=== PATIENT | male | born 1990 | race Caucasian/White ===

== ENCOUNTER 2022-03-07 07:43 | Outpatient (CLI) | payer OTHER, SELFPAY ==
--- NOTE | 2022-03-07 07:51 | MR_ITS ---
WS: [id number] MRI LUMBAR SPINE NONCONTRAST TECHNIQUE: Sagittal T1, T2 and STIR imaging. Axial T1 and T2 imaging. CLINICAL INFORMATION: INJURY OF LOW BACK COMPARISON: None. FINDINGS: Some images degraded by patient motion. Mild lumbar curve. No acute compression. Disc bulgi ng worse at L3-L4 L4-L5. L1-L2: Mild facet arthropathy. Spinal canal and foramen are patent. L2-L3: Minimal annular bulging. Mild LEFT and no RIGHT foraminal narrowing. Moderate facet arthropath y. L3-L4: Shallow central disc protrusion with impingement on the ventral thecal sac. Moderate central c anal stenosis with crowding of the cauda equina nerve rootlets. Prominent dorsal epidural fat. Modera te facet arthropathy with ligamentum flavum hypertrophy. Mild RIGHT greater than LEFT foraminal narro wing. L4-L5: Mild annular bulging eccentric to the RIGHT. Mild central canal stenosis with slight impingeme nt traversing L5 nerve roots. Mild to moderate RIGHT and no LEFT foraminal narrowing. Moderate facet arthropathy. L5-S1: Mild annular bulging. Moderate facet arthropathy. Mild RIGHT and no significant LEFT foraminal narrowing. Visualized pelvic bony structures: Normal. Paravertebral soft tissues: Normal. MR/MR lumbar spine wo con* [id number] IMPRESSION: Some images degraded by patient motion. 1. Mild lumbar curve. No acute compression. 2. Moderate central canal stenosis L3-L4 with a shallow central disc protrusio n. Prominent dorsal epidural fat and facet arthropathy contributes to central c anal stenosis. 3. Mild central canal stenosis L4-L5. 4. Mild RIGHT L3-L4 and mild to moderate RIGHT L4-L5 foraminal narrowing. 5. Moderate facet arthropathy L3-L5.
== END 2022-03-07 07:44 | disposition home or self-care (01) ==
LOC: RAD 07:44
PROVIDERS: Visit Provider Family Medicine
DX: S39.92XA Unspecified injury of lower back, initial encounter (principal); X58.XXXA Exposure to other specified factors, initial encounter; M48.061 Spinal stenosis, lumbar region without neurogenic claudication; M47.816 Spondylosis without myelopathy or radiculopathy, lumbar region
CPT/HCPCS: 72148